=== PATIENT | female | born 1965 | race American Indian/Alaskan Native ===

== ENCOUNTER 2018-05-16 11:45 | Emergency (ER) | payer OTHER ==
[2018-05-16 11:54] VITALS: BP 157/104
--- NOTE | 2018-05-16 12:29 | Emergency Department Report ---
ED Shortness of Breath HPI - General Chief Complaint: Dyspnea/Respdistress Stated Complaint: JULIANNA/CHF Time Seen by Provider: 05/16/18 12:27 Source: patient Mode of arrival: Ambulatory Limitations: No Limitations - History of Present Illness Initial Comments: 52-year-old female that presents emergency room with complaints of shortness of breath and wheezing. Patient states her symptom then going on for 3 weeks. Patient states they're better with rest and worse with exertion. Patient denies chest pain. Patient denies abdominal pain. Patient denies headache. Patient denies dizziness. MD Complaint: shortness of breath -: Gradual Severity: severe Consistency: constant Improves With: rest Worsens With: exertion Associated Symptoms: denies other symptoms Treatments Prior to Arrival: none - Related Data Home Oxygen Therapy: No Home Medications Medication Instructions Recorded Confirmed Last Taken Aspirin [Adult Aspirin] 81 mg PO DAILY 05/16/18 05/16/18 05/15/18 AtorvaSTATin [Lipitor] 10 mg PO QHS 05/16/18 05/16/18 05/15/18 Furosemide [Lasix TAB] 40 mg PO QDAY 05/16/18 05/16/18 05/15/18 Lisinopril [Zestril] 20 mg PO QDAY 05/16/18 05/16/18 05/15/18 Losartan [Cozaar] 50 mg PO QDAY 05/16/18 05/16/18 05/15/18 Metoprolol Xl [Metoprolol 50 mg PO QDAY 05/16/18 05/16/18 05/15/18 SUCCINATE ER TAB] Spironolactone [Aldactone] 25 mg PO QDAY 05/16/18 05/16/18 05/15/18 hydroCHLOROthiazide 12.5 mg PO DAILY 05/16/18 05/16/18 05/15/18 [Hydrochlorothiazide] Allergies Allergy/AdvReac Type Severity Reaction Status Date / Time No Known Allergies Allergy Verified 05/16/18 11:50 ED Review of Systems ROS: Stated complaint: JULIANNA/CHF Other details as noted in HPI Constitutional: denies: chills, fever Eyes: denies: eye pain, eye discharge, vision change ENT: denies: ear pain, throat pain Respiratory: shortness of breath, SOB with exertion, SOB at rest, wheezing. denies: cough Cardiovascular: denies: chest pain, palpitations Endocrine: no symptoms reported Gastrointestinal: denies: abdominal pain, nausea, diarrhea Genitourinary: denies: urgency, dysuria, discharge Musculoskeletal: denies: back pain, joint swelling, arthralgia Skin: denies: rash, lesions Neurological: denies: headache, weakness, paresthesias Psychiatric: denies: anxiety, depression Hematological/Lymphatic: denies: easy bleeding, easy bruising ED Past Medical Hx - Past Medical History Previous Medical History?: Yes Hx Hypertension: Yes Hx Congestive Heart Failure: Yes Additional medical history: High Cholesterol, heart murmur - Surgical History Past Surgical History?: No - Family History Family history: no significant - Social History Smoking Status: Never Smoker Substance Use Type: None - Medications Home Medications: Home Medications Medication Instructions Recorded Confirmed Last Taken Type Aspirin [Adult Aspirin] 81 mg PO DAILY 05/16/18 05/16/18 05/15/18 History AtorvaSTATin [Lipitor] 10 mg PO QHS 05/16/18 05/16/18 05/15/18 History Furosemide [Lasix TAB] 40 mg PO QDAY 05/16/18 05/16/18 05/15/18 History Lisinopril [Zestril] 20 mg PO QDAY 05/16/18 05/16/18 05/15/18 History Losartan [Cozaar] 50 mg PO QDAY 05/16/18 05/16/18 05/15/18 History Metoprolol Xl [Metoprolol 50 mg PO QDAY 05/16/18 05/16/18 05/15/18 History SUCCINATE ER TAB] Spironolactone [Aldactone] 25 mg PO QDAY 05/16/18 05/16/18 05/15/18 History hydroCHLOROthiazide 12.5 mg PO DAILY 05/16/18 05/16/18 05/15/18 History [Hydrochlorothiazide] ED Physical Exam - General Limitations: No Limitations General appearance: alert, in no apparent distress - Head Head exam: Present: atraumatic, normocephalic - Eye Eye exam: Present: normal appearance - ENT ENT exam: Present: mucous membranes moist - Neck Neck exam: Present: normal inspection - Respiratory Respiratory exam: Present: normal lung sounds bilaterally. Absent: respiratory distress - Cardiovascular Cardiovascular Exam: Present: regular rate, normal rhythm. Absent: systolic mu rmur, diastolic murmur, rubs, gallop - GI/Abdominal GI/Abdominal exam: Present: soft, normal bowel sounds - Extremities Exam Extremities exam: Present: normal inspection - Back Exam Back exam: Present: normal inspection - Neurological Exam Neurological exam: Present: alert, oriented X3 - Psychiatric Psychiatric exam: Present: normal affect, normal mood - Skin Skin exam: Present: warm, dry, intact, normal color. Absent: rash ED Course Vital Signs 05/16/18 11:51 Temperature 98.4 F Pulse Rate 106 H Respiratory 18 Rate Blood Pressure 157/104 O2 Sat by Pulse 100 Oximetry - Reevaluation(s) Reevaluation #1: Discussed all results with patient. Discussed plan of care with patient. Patient agrees to plan of care and admission. 05/16/18 15:32 05/16/18 15:32 - Consultations Consultation #1: 05/16/18 15:32 Hospitalist consult for admission. Hospitalist to assume care patient. ED Medical Decision Making - Lab Data Result diagrams: 05/16/18 12:50 05/16/18 12:50 - EKG Data -: EKG Interpreted by Wi EKG shows normal: sinus rhythm, axis, intervals, QRS complexes, ST-T waves - EKG Data Interpretation: LVH - Radiology Data Radiology results: report reviewed CTA CHEST: HISTORY: Shortness of breath, elevated d-dimer. COMPARISON: none. TECHNIQUE: Helical CT in 1.25mm intervals following IV contrast. Pulmonary embolus protocol. Sagittal and coronal reformatted images. Rotational MIP images. FINDINGS: Contrast bolus is satisfactory. No pulmonary embolus is identified. Thyroid gland: Normal. Tracheobronchial tree: Normal. Esophagus: Normal. Heart: Mild cardiomegaly. Pericardium: Normal. Mediastinum: Normal. Lung [place]: Normal. Pleural Spaces: Normal. Musculoskeletal: Normal. IMPRESSION: No evidence for pulmonary embolus. Mild cardiomegaly. Transcribed By: TTR Dictated By: AUSTIN JONES JR, MD Electronically Authenticated By: AUSTIN JONES JR, MD Signed Date/Time: 05/16/18 1510 - Medical Decision Making Patient 52-year-old female that presents emergency with complaints of shortness of breath. Patient chf exacerbation. BNP is elevated. D-dimer elevated. Patient has CT done and was negative for PE. Patient to be admitted to the hospitalist service for further evaluation treatment. - Differential Diagnosis sob. chf. acs Critical care attestation.: If time is entered above; I have spent that time in minutes in the direct care of this critically ill patient, excluding procedure time. ED Disposition Clinical Impression: Shortness of breath CHF exacerbation Qualifiers: Heart failure type: unspecified Qualified Code(s): I50.9 - Heart failure, unspecified Hypertension Qualifiers: Hypertension type: essential hypertension Qualified Code(s): I10 - Essential (primary) hypertension Disposition: OP ADMIT IP TO THIS HOSP Is pt being admited?: Yes Does the pt Need Aspirin: No Condition: Serious Time of Disposition: 15:32
[2018-05-16 13:09] LABS: Bacteria,Urine 1+ /HPF (Negative); Bilirubin,Urine NEG (Negative); Blood,Urine NEG (Negative); Color,Urine Yellow (Yellow); Mucus,Urine FEW /HPF; Protein,Urine <15 mg/dL mg/dL (Negative); Urobilinogen,Urine < 2.0 mg/dL (<2.0)
[2018-05-16 13:10] LABS: HCG Qualitative,Urine Negative (Negative)
[2018-05-16 13:11] LABS: Basophils # (Auto) 0.1 K/mm3 (0.0-0.1); Basophils % (Auto) 0.8 % (0.0-1.8); Eosinophils # (Auto) 0.1 K/mm3 (0.0-0.4); Eosinophils % (Auto) 1.8 % (0.0-4.3); Hematocrit 41.8 % (30.3-42.9); Hemoglobin 13.8 gm/dl (10.1-14.3); Lymphocytes # (Auto) 1.3 K/mm3 (1.2-5.4); Mean Corpuscular HGB Conc 33 % (30-34); Mean Corpuscular Volume 85 fl (79-97); Monocytes # (Auto) 0.7 K/mm3 (0.0-0.8); Monocytes % (Auto) 9.3 % (0.0-7.3); Platelet Count 255 K/mm3 (140-440); Red Blood Count 4.94 M/mm3 (3.65-5.03); Red Cell Distribution Width 13.6 % (13.2-15.2)
--- NOTE | 2018-05-16 13:36 | XRay Report ---
AP CHEST: HISTORY: Dyspnea AP view of the chest demonstrates a normal mediastinal and cardiac contour with clear lungs and normal bony and soft tissue structures. IMPRESSION: No acute cardiopulmonary process identified.
[2018-05-16 13:37] LABS: Creatine Kinase MB 3.4 ng/mL (0.0-4.0)
[2018-05-16 13:38] LABS: Alanine Aminotransferase 19 units/L (7-56); Albumin 4.5 g/dL (3.9-5); BUN/Creatinine Ratio 16; Blood Urea Nitrogen 13 mg/dL (7-17); Calcium 9.7 mg/dL (8.4-10.2); Hemolysis Index 11
--- NOTE | 2018-05-16 15:13 | Cat Scan Report ---
CTA CHEST: HISTORY: Shortness of breath, elevated d-dimer. COMPARISON: none. TECHNIQUE: Helical CT in 1.25mm intervals following IV contrast. Pulmonary embolus protocol. Sagittal and coronal reformatted images. Rotational MIP images. FINDINGS: Contrast bolus is satisfactory. No pulmonary embolus is identified. Thyroid gland: Normal. Tracheobronchial tree: Normal. Esophagus: Normal. Heart: Mild cardiomegaly. Pericardium: Normal. Mediastinum: Normal. Lung [place]: Normal. Pleural Spaces: Normal. Musculoskeletal: Normal. IMPRESSION: No evidence for pulmonary embolus. Mild cardiomegaly.
--- NOTE | 2018-05-16 15:33 | Consultation ---
Medications and Allergies Allergies Allergy/AdvReac Type Severity Reaction Status Date / Time No Known Allergies Allergy Verified 05/16/18 11:50 Home Medications Medication Instructions Recorded Confirmed Last Taken Type Aspirin [Adult Aspirin] 81 mg PO DAILY 05/16/18 05/16/18 05/15/18 History AtorvaSTATin [Lipitor] 10 mg PO QHS 05/16/18 05/16/18 05/15/18 History Furosemide [Lasix TAB] 40 mg PO QDAY 05/16/18 05/16/18 05/15/18 History Lisinopril [Zestril] 20 mg PO QDAY 05/16/18 05/16/18 05/15/18 History Losartan [Cozaar] 50 mg PO QDAY 05/16/18 05/16/18 05/15/18 History Metoprolol Xl [Metoprolol 50 mg PO QDAY 05/16/18 05/16/18 05/15/18 History SUCCINATE ER TAB] Spironolactone [Aldactone] 25 mg PO QDAY 05/16/18 05/16/18 05/15/18 History hydroCHLOROthiazide 12.5 mg PO DAILY 05/16/18 05/16/18 05/15/18 History [Hydrochlorothiazide] Exam - Constitutional Vitals: Temp Pulse Resp BP Pulse Ox 98.4 F 106 H 18 157/104 100 05/16/18 11:51 05/16/18 11:51 05/16/18 11:51 05/16/18 11:51 05/16/18 11:51 Results - Labs CBC & Chem 7: 05/16/18 12:50 05/16/18 12:50 Labs: Abnormal lab results 05/16/18 05/16/18 05/16/18 Range/Units 12:50 12:50 12:50 [place] % (Auto) 9.3 H (0.0-7.3) % Seg Neutrophils % 71.1 H (40.0-70.0) % D-Dimer 299.48 H (0-234) ng/mlDDU Total Creatine Kinase 198 H (30-135) units/L NT-Pro-B Natriuret Pep (0-900) pg/mL Total Protein (6.3-8.2) g/dL Urine WBC (Auto) (0.0-6.0) /HPF U Epithel Cells (Auto) (0-13.0) /HPF 05/16/18 05/16/18 Range/Units 12:50 12:53 [place] % (Auto) (0.0-7.3) % Seg Neutrophils % (40.0-70.0) % D-Dimer (0-234) ng/mlDDU Total Creatine Kinase (30-135) units/L NT-Pro-B Natriuret Pep 1111 H (0-900) pg/mL Total Protein 8.3 H (6.3-8.2) g/dL Urine WBC (Auto) 9.0 H (0.0-6.0) /HPF U Epithel Cells (Auto) 15.0 H (0-13.0) /HPF
--- NOTE | 2018-06-25 10:42 | Event Note ---
Date: 05/16/18 52 YO Female present to ED for evaluation. Pt found to have Acute Bronchitis. Pt treated with supportive care with resolution of symptoms. Pt medically optimized and back to usual state of health. Pt discharged home and instructed to f/u pcp 1wk, Cardiology 1wk, and pulmonary prn. - General Limitations: No Limitations General appearance: alert, in no apparent distress - Head Head exam: Present: atraumatic, normocephalic - Eye Eye exam: Present: normal appearance - ENT ENT exam: Present: mucous membranes moist - Neck Neck exam: Present: normal inspection - Respiratory Respiratory exam: Present: normal lung sounds bilaterally. Absent: respiratory distress - Cardiovascular Cardiovascular Exam: Present: regular rate, normal rhythm. Absent: systolic murmur, diastolic murmur, rubs, gallop - GI/Abdominal GI/Abdominal exam: Present: soft, normal bowel sounds - Extremities Exam Extremities exam: Present: normal inspection - Back Exam Back exam: Present: normal inspection - Neurological Exam Neurological exam: Present: alert, oriented X3 - Psychiatric Psychiatric exam: Present: normal affect, normal mood - Skin Skin exam: Present: warm, dry, intact, normal color. Absent: rash
== END 2018-05-16 18:00 | disposition admitted as inpatient to this hospital (09) ==
LOC: ED 11:45
DX: R06.02 Shortness of breath (principal); R06.2 Wheezing; I11.0 Hypertensive heart disease with heart failure; I50.9 Heart failure, unspecified; E78.00 Pure hypercholesterolemia, unspecified
CPT/HCPCS: 36415; 71045; 71275; 80053; 81001; 81025; 82140; 82550; 82553; 83880; 84484; 85025; 85379; 93005; 93010; 99285; Q9967